=== PATIENT | female | born 1995 | race Caucasian/White ===

== ENCOUNTER 2017-10-23 12:44 | Emergency (ER) | payer OTHER, MEDICAID ==
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
[2017-10-23] MEDS ORDERED: HYDROCODONE/ACETAMINOPHEN 5-325 MG TABLET PO ONE (14:41)
[2017-10-23 15:32] VITALS: BP 95/62
== END 2017-10-23 15:31 | disposition home or self-care (01) ==
LOC: ER 12:44
DX: S39.012A Strain of muscle, fascia and tendon of lower back, initial encounter (principal); M25.551 Pain in right hip; M25.552 Pain in left hip; V43.52XA Car driver injured in collision with other type car in traffic accident, initial encounter; Q76.49 Other congenital malformations of spine, not associated with scoliosis; J45.909 Unspecified asthma, uncomplicated; Z98.890 Other specified postprocedural states
CPT/HCPCS: 72110; 99283

== ENCOUNTER 2017-12-06 21:45 | Emergency (ER) | payer SELFPAY ==
[2017-12-06] MEDS ORDERED: NORMAL SALINE 1000 ML 1,000 ML IV ONE (22:53)
[2017-12-06] MEDS ORDERED: ONDANSETRON HCL INJ/PF 4 MG/2 ML SDV IV ONE (22:54)
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
[2017-12-06 23:34] LABS: ABSOLUTE LYMPHOCYTES (AUTO) 2.1 10^3/uL (0.5-4.7); ABSOLUTE MONOCYTES (AUTO) 0.5 10^3/uL (0.1-1.4); ABSOLUTE NEUT (AUTO) 7.1 10^3/uL (1.7-8.2); BASOPHILS % (AUTO) 0.3 % (0-2); EOSINOPHILS % (AUTO) 0.1 % (0-6); HEMATOCRIT 38.8 % (36.0-47.0); HEMOGLOBIN 13.3 g/dL (12.0-15.5); LYMPHOCYTES % (AUTO) 21.5 % (13-45); MEAN CORPUSCULAR HEMOGLOBIN 31.8 pg (27.0-33.4); MEAN CORPUSCULAR HGB CONC 34.4 g/dL (32.0-36.0); MEAN CORPUSCULAR VOLUME 93 fl (80-97); PLATELET COUNT 271 10^3/uL (150-450); RED BLOOD COUNT 4.19 10^6/uL (3.72-5.28); RED CELL DISTRIBUTION WIDTH 13.3 % (11.5-14.0); SEGMENTED NEUTROPHILS % (AUTO) 73.1 % (42-78); TOTAL CELLS COUNTED % (AUTO) 100 %; WHITE BLOOD COUNT 9.8 10^3/uL (4.0-10.5)
[2017-12-06 23:55] LABS: APPEARANCE,URINE SLIGHTLY-CLOUDY; BILIRUBIN,URINE NEGATIVE (NEGATIVE); COLOR,URINE YELLOW; GLUCOSE, URINE NEGATIVE (NEGATIVE); KETONES,URINE 20 mg/dL (NEGATIVE); LEUKOCYTE ESTERASE,URINE NEGATIVE (NEGATIVE); NITRITE,URINE NEGATIVE (NEGATIVE); PROTEIN,URINE NEGATIVE (NEGATIVE); URINE SPECIFIC GRAVITY 1.014; UROBILINOGEN,URINE NEGATIVE mg/dL (<2.0)
[2017-12-07 00:52] LABS: ALANINE AMINOTRANSFERASE 22 U/L (9-52); ALBUMIN 3.5 g/dL (3.5-5.0); ALKALINE PHOSPHATASE 43 U/L (38-126); ANION GAP 14 (5-19); ASPARTATE AMINO TRANSFERASE 13 U/L (14-36); BILIRUBIN,DIRECT 0.2 mg/dL (0.0-0.4); BILIRUBIN,TOTAL 0.4 mg/dL (0.2-1.3); BLOOD UREA NITROGEN 8 mg/dL (7-20); CALCIUM 8.7 mg/dL (8.4-10.2); CARBON DIOXIDE 19 mmol/L (22-30); CHLORIDE 110 mmol/L (98-107); GLUCOSE 72 mg/dL (75-110); LIPASE 60.4 U/L (23-300); POTASSIUM 3.4 mmol/L (3.6-5.0); SODIUM 142.8 mmol/L (137-145); TOTAL PROTEIN 5.9 g/dL (6.3-8.2)
[2017-12-07] MEDS ORDERED: ONDANSETRON ODT 4 MG TAB (6 TAB/ER DISP) PO PRN (01:20)
[2017-12-07 01:55] VITALS: BP 110/72
== END 2017-12-07 01:38 | disposition home or self-care (01) ==
LOC: ER 21:45
DX: R11.2 Nausea with vomiting, unspecified (principal); R19.7 Diarrhea, unspecified; R10.10 Upper abdominal pain, unspecified
CPT/HCPCS: 99284; 96361; 96374; 36415; 83690; 85025; 81025; 80053; 81001; J2405; J7030

== ENCOUNTER 2017-12-08 08:25 | Emergency (ER) | payer SELFPAY ==
[2017-12-08] MEDS ORDERED: NORMAL SALINE 1000 ML 1,000 ML IV ONE (09:23)
[2017-12-08] MEDS ORDERED: PROCHLORPERAZINE EDISYLATE INJ 10 MG/2 ML VIAL IM ONE (09:39)
--- NOTE | 2017-12-08 09:49 | ER Document Report ---
ED General - General Mode of Arrival: Medic Information source: Patient TRAVEL OUTSIDE OF THE [place] IN LAST 30 DAYS: No <SERGIO FALL - Last Filed: 12/08/17 09:55> <LIU LOPEZ - Last Filed: 12/08/17 12:54> - General Chief Complaint: Vomiting Stated Complaint: VOMITING/CRAMPING Time Seen by Provider: 12/08/17 09:41 Notes: 22 y.o female presents to the ED with abd pain and vomiting. Pt reports that she has been vomiting since Thursday or Thursday or last week and was seen in the ED two days ago for the onset of epigastic pain with her vomiting. Pt while in the Ed two days ago had a positive test. Pt denies any vaginal bleeding. Pt reports that her last menstrual period was October 11. 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 She denies ever being in the before. (SERGIO FALL) - Related Data Allergies/Adverse Reactions: No Known Allergies Allergy (Verified 10/23/17 12:45) Past Medical History - General Information source: Patient - Social History Smoking Status: Never Smoker Cigarette use (# per day): No Chew tobacco use (# tins/day): No Smoking Education Provided: No Frequency of alcohol use: None Drug Abuse: None Family History: Reviewed & Not Pertinent Patient has suicidal ideation: No Patient has homicidal ideation: No Pulmonary Medical History: Reports: Hx Asthma, Hx Bronchitis Renal/ Medical History: Denies: Hx Peritoneal Dialysis Past Surgical History: Reports: Hx Orthopedic Surgery - back as child due to tethered spine. - Immunizations Immunizations up to date: Yes Hx Diphtheria, Pertussis, Tetanus Vaccination: Yes <SERGIO FALL - Last Filed: 12/08/17 09:55> Review of Systems - Review of Systems Constitutional: No symptoms reported EENT: No symptoms reported Cardiovascular: No symptoms reported Respiratory: No symptoms reported Gastrointestinal: See HPI, Abdominal pain - epigastic, Nausea, Vomiting Genitourinary: No symptoms reported Female Genitourinary: See HPI, . denies: Vaginal bleeding Musculoskeletal: No symptoms reported Skin: No symptoms reported Hematologic/Lymphatic: No symptoms reported Neurological/Psychological: No symptoms reported -: Yes All other systems reviewed and negative <SERGIO FALL - Last Filed: 12/08/17 09:55> Physical Exam <JUAN DAVIDSERGIO - Last Filed: 12/08/17 09:55> <LIU LOPEZ - Last Filed: 12/08/17 12:54> - Vital signs Vitals: Temp Pulse Resp BP Pulse Ox 98.1 F 83 20 124/53 L 100 12/08/17 08:29 12/08/17 08:29 12/08/17 08:29 12/08/17 08:29 12/08/17 08:29 - Notes Notes: Physical Exam: General: Alert. HEENT: Normocephalic. Atraumatic. PERRL. Extraocular movements intact. Oropharynx clear. Neck: Supple. Non-tender. Respiratory: No respiratory distress. Clear and equal breath sounds bilaterally. Cardiovascular: Regular rate and rhythm. Abdominal: Soft. Tender in epigastrium, not tender in RUQ or lower abd. No distension. Normal Bowel Sounds. Back: Non-tender. No deformity or step off. Extremities: Moves all four extremities. Upper extremities: Normal inspection. Normal ROM. Lower extremities: Normal inspection. No edema. Normal ROM. Neurological: Normal cognition. AAOx3. Normal speech. (SERGIO FALL) Course <ESRGIO FALL - Last Filed: 12/08/17 09:55> - Laboratory Result Diagrams: 12/08/17 09:50 12/08/17 09:50 <LIU LOPEZ - Last Filed: 12/08/17 12:54> - Re-evaluation Re-evalutation: 12/08/17 11:35 Patient reports the GI cocktail helped the epigastric burning pain and cramping. It is starting to wear off now. (LIU LOPEZ) - Vital Signs Vital signs: Temp Pulse Resp BP Pulse Ox 99.3 F 83 16 107/47 L 100 12/08/17 11:45 12/08/17 11:45 12/08/17 11:45 12/08/17 11:45 12/08/17 11:45 - Laboratory Laboratory results interpreted by me: 12/08/17 12/08/17 12/08/17 09:38 09:50 09:50 Seg Neutrophils % 81.2 H Chloride 108 H Carbon Dioxide 14 L Anion Gap 20 H Calcium 10.5 H Total Bilirubin 2.1 H Direct Bilirubin 0.5 H Beta HCG, Quant 68219.00 H Urine Protein 30 H Urine Ketones 80 H Ur Leukocyte Esterase TRACE H Discharge <SERGIO FALL - Last Filed: 12/08/17 09:55> <LIU LOPEZ - Last Filed: 12/08/17 12:54> - Discharge Clinical Impression: Hyperemesis gravidarum GERD (gastroesophageal reflux disease) Qualifiers: Esophagitis presence: esophagitis presence not specified Qualified Code(s): K21.9 - Gastro-esophageal reflux disease without esophagitis Condition: Stable Disposition: HOME, SELF-CARE Additional Instructions: Hyperemesis Gravidarum: Hyperemesis gravidarum is the medical term for severe vomiting during . We don't know exactly why it occurs, but it's a common problem. Dehydration can occur. This reduces blood flow to the placenta, decreasing the baby's nourishment. The baby will also become dehydrated. There can be harmful changes in blood sodium, potassium, or acid balance. Our goal is to correct, and prevent, dehydration. For severe cases, we give IV fluids. Antinausea medication will be prescribed. (Don't be concerned about " defects" -- the risk to you and your baby from the hyperemesis is the biggest problem. The antinausea medication is very safe at this stage of .) Call the doctor if you have vaginal bleeding, abdominal pain, severe lightheadedness or weakness, or other alarming symptoms. : You are . care is best started as early in as possible. If you're unsure about continuing this , you should discuss this with your physician or with conductor sleeping car at [facility]. You should take only medications approved by your physician. Acetaminophen can safely be taken for minor pains. As a rule, medication for chronic conditions such as asthma or seizures can safely be continued. You should discuss with the physician every medicine you take. Any regular exercise program can be continued. Talk to your physician, however, before engaging in competitive or demanding sports. Alcohol, smoking, and "street drugs" are dangerous to your baby. Cocaine is especially dangerous. Don't use any illicit drugs! Reflux Disease (GERD): Gastro-Esophageal Reflux Disease (GERD) is caused by stomach acid refluxing back up into the esophagus. The valve at the end of the esophagus may be weak. This is common in persons with a hiatal hernia. GERD symptoms can include indigestion, chest pain, heartburn, or food "sticking." Certain foods, alcohol, and aspirin can make GERD worse. Treatment depends on the severity. Usually, antacids or acid-suppressing medicines are used. When the esophagus is acutely inflamed, the physician will often prescribe membrane-protective drugs such as Carafate. Some patients benefit from medication such as Reglan that tightens the valve at the top of the stomach. Avoid those foods that bring on your symptoms. For many people, these foods are coffee, chocolate, onions, garlic, and carbonated drinks. Don't use alcohol, aspirin, caffeine, or tobacco. Don't eat late at night -- within 4 hours of bedtime. Don't over-eat. If necessary, elevate the head of your bed about 4 inches so that stomach acid will not roll up into your esophagus. Call the doctor if you develop severe chest pain, inability to swallow fluids, fever, or worsening symptoms. Take medication as prescribed for nausea as needed. Take antacids for the epigastric abdominal pain caused by the vomiting. Follow-up with the health department or with [facility] to start her care. RETURN TO THE EMERGENCY ROOM IF ANY NEW OR WORSENING SYMPTOMS. Prescriptions: Metoclopramide HCl [Reglan 10 mg Tablet] 1 tab PO ASDIR PRN #25 tablet PRN Reason: Referrals: JOANNE ADDISON MD [Primary Care Provider] - Follow up as needed [facility] [Provider Group] - Follow up as needed [facility] [Outside] - Follow up as needed Scribe Attestation: 12/08/17 12:54 I personally performed the services described in the documentation, reviewed and edited the documentation which was dictated to the scribe in my presence, and it accurately records my words and actions. (LIU LOPEZ) Scribe Documentation - Scribe Written by Yeny:: Yeny Mcleod [id number] 12/08/17 acting as scribe for :: Sarah <SERGIO FALL - Last Filed: 12/08/17 09:55>
[2017-12-08] MEDS ORDERED: MAG HYDROX/AL HYDROX/SIMETH SUSP 30 ML UDCUP PO ONE ×2 (09:59→12:42)
[2017-12-08] MEDS ORDERED: LIDOCAINE 2% VISCOUS SOLN 20 ML UDCUP PO ONE ×2 (09:59→12:42)
[2017-12-08] MEDS ORDERED: METOCLOPRAMIDE HCL INJ/PF 10 MG/2 ML SDV IV ONE (10:02)
[2017-12-08 10:14] LABS: ABSOLUTE LYMPHOCYTES (AUTO) 1.1 10^3/uL (0.5-4.7); ABSOLUTE MONOCYTES (AUTO) 0.3 10^3/uL (0.1-1.4); BASOPHILS % (AUTO) 0.2 % (0-2); HEMOGLOBIN 14.4 g/dL (12.0-15.5); LYMPHOCYTES % (AUTO) 14.7 % (13-45); MEAN CORPUSCULAR HEMOGLOBIN 31.9 pg (27.0-33.4); MEAN CORPUSCULAR HGB CONC 35.1 g/dL (32.0-36.0); MEAN CORPUSCULAR VOLUME 91 fl (80-97); MONOCYTES % (AUTO) 3.9 % (3-13); PLATELET COUNT 291 10^3/uL (150-450); RED BLOOD COUNT 4.52 10^6/uL (3.72-5.28); RED CELL DISTRIBUTION WIDTH 12.9 % (11.5-14.0); SEGMENTED NEUTROPHILS % (AUTO) 81.2 % (42-78); TOTAL CELLS COUNTED % (AUTO) 100 %; WHITE BLOOD COUNT 7.4 10^3/uL (4.0-10.5)
[2017-12-08 10:20] LABS: APPEARANCE,URINE SLIGHTLY-CLOUDY; BILIRUBIN,URINE NEGATIVE (NEGATIVE); COLOR,URINE YELLOW; GLUCOSE, URINE NEGATIVE (NEGATIVE); KETONES,URINE 80 mg/dL (NEGATIVE); LEUKOCYTE ESTERASE,URINE TRACE (NEGATIVE); NITRITE,URINE NEGATIVE (NEGATIVE); PROTEIN,URINE 30 mg/dL (NEGATIVE); URINE SPECIFIC GRAVITY 1.026; UROBILINOGEN,URINE NEGATIVE mg/dL (<2.0)
[2017-12-08 10:31] LABS: ALANINE AMINOTRANSFERASE 21 U/L (9-52); ALKALINE PHOSPHATASE 65 U/L (38-126); ASPARTATE AMINO TRANSFERASE 18 U/L (14-36); BILIRUBIN,DIRECT 0.5 mg/dL (0.0-0.4); BILIRUBIN,TOTAL 2.1 mg/dL (0.2-1.3); BLOOD UREA NITROGEN 11 mg/dL (7-20); CALCIUM 10.5 mg/dL (8.4-10.2); GLUCOSE 84 mg/dL (75-110); LIPASE 74.5 U/L (23-300); POTASSIUM 4.1 mmol/L (3.6-5.0); TOTAL PROTEIN 7.9 g/dL (6.3-8.2)
[2017-12-08 10:37] LABS: CARBON DIOXIDE 14 mmol/L (22-30); CHLORIDE 108 mmol/L (98-107); SODIUM 142.2 mmol/L (137-145)
[2017-12-08 10:38] LABS: ANION GAP 20 (5-19)
[2017-12-08] MEDS ORDERED: DEXTROSE 5%-LACTATED RINGERS 1,000 ML IV ONE ×2 (11:30→12:42)
[2017-12-08] MEDS ORDERED: FAMOTIDINE INJ/PF 20 MG/2 ML SDV IV ONE (12:57)
[2017-12-08] MEDS ORDERED: DIPHENHYDRAMINE HCL 50 MG/ML VIAL IV ONE (12:57)
[2017-12-08 14:38] VITALS: BP 99/64
== END 2017-12-08 14:38 | disposition home or self-care (01) ==
LOC: ER 08:25
DX: O21.0 Mild hyperemesis gravidarum (principal); O99.611 Diseases of the digestive system complicating pregnancy, first trimester; K21.9 Gastro-esophageal reflux disease without esophagitis; O26.891 Other specified pregnancy related conditions, first trimester; R10.13 Epigastric pain; O99.511 Diseases of the respiratory system complicating pregnancy, first trimester; J45.909 Unspecified asthma, uncomplicated; Z3A.08 8 weeks gestation of pregnancy
CPT/HCPCS: 99284; 96361; 96374; 96375; 86900; 86901; 36415; 84702; 83690; 85025; 80053; 81001; J1200; J3490; J2765; J7030; S0028

== ENCOUNTER 2019-12-28 08:25 | Emergency (ER) | payer SELFPAY ==
[2019-12-28] MEDS ORDERED: NORMAL SALINE 1000 ML 1,000 ML IV ONE ×2 (08:49→09:20)
[2019-12-28 08:58] LABS: ABSOLUTE LYMPHOCYTES (AUTO) 1.1 10^3/uL (0.5-4.7); ABSOLUTE MONOCYTES (AUTO) 0.3 10^3/uL (0.1-1.4); BASOPHILS % (AUTO) 0.4 % (0-2); EOSINOPHILS % (AUTO) 0.1 % (0-6); HEMATOCRIT 39.1 % (36.0-47.0); HEMOGLOBIN 13.4 g/dL (12.0-15.5); LYMPHOCYTES % (AUTO) 19.7 % (13-45); MEAN CORPUSCULAR HEMOGLOBIN 30.4 pg (27.0-33.4); MEAN CORPUSCULAR HGB CONC 34.4 g/dL (32.0-36.0); MEAN CORPUSCULAR VOLUME 89 fl (80-97); MONOCYTES % (AUTO) 5.4 % (3-13); PLATELET COUNT 286 10^3/uL (150-450); RED BLOOD COUNT 4.41 10^6/uL (3.72-5.28); RED CELL DISTRIBUTION WIDTH 14.6 % (11.5-14.0); SEGMENTED NEUTROPHILS % (AUTO) 74.4 % (42-78); TOTAL CELLS COUNTED % (AUTO) 100 %; WHITE BLOOD COUNT 5.4 10^3/uL (4.0-10.5)
[2019-12-28 09:16] LABS: ALBUMIN 5.2 g/dL (3.5-5.0); ALKALINE PHOSPHATASE 70 U/L (38-126); ANION GAP 19 (5-19); ASPARTATE AMINO TRANSFERASE 25 U/L (14-36); BILIRUBIN,DIRECT 0.1 mg/dL (0.0-0.4); BILIRUBIN,TOTAL 1.9 mg/dL (0.2-1.3); BLOOD UREA NITROGEN 22 mg/dL (7-20); CALCIUM 10.3 mg/dL (8.4-10.2); CARBON DIOXIDE 14 mmol/L (22-30); CHLORIDE 104 mmol/L (98-107); GLUCOSE 88 mg/dL (75-110); POTASSIUM 4.1 mmol/L (3.6-5.0); TOTAL PROTEIN 8.4 g/dL (6.3-8.2)
[2019-12-28] MEDS ORDERED: ONDANSETRON HCL INJ/PF 4 MG/2 ML SDV IV ONE (09:19)
--- NOTE | 2019-12-28 09:24 | ER Document Report ---
ED GI/ - General Chief Complaint: Nausea Stated Complaint: VOMITING Time Seen by Provider: 12/28/19 08:59 Notes: Patient is a 24-year-old female with a history of migraines who presents emergency department with a chief complaint of vomiting. Patient reports 2 days ago developing a migraine headache. Patient reports this did last 2 days. Patient reports her headache has now improved but she continues to vomit. Patient reports she has been to the emergency department before for uncontrolled vomiting and was told that it was her anxiety. Patient denies fever, chest pain, shortness of breath, urinary symptoms or abdominal pain. Patient denies back pain. Patient denies diarrhea. Patient reports there is no blood in her vomit. Patient estimates vomiting about 5-6 times per day and is unable to tolerate liquids or food. Patient reports she did attempt to eat something last night as she started to feel better but then began to vomit. TRAVEL OUTSIDE OF THE [place] IN LAST 30 DAYS: No - Related Data Allergies/Adverse Reactions: No Known Allergies Allergy (Verified 10/23/17 12:45) Past Medical History - General Information source: Patient - Social History Smoking Status: Never Smoker Drug Abuse: None Lives with: Family Family History: Reviewed & Not Pertinent Patient has homicidal ideation: No - Past Medical History Cardiac Medical History: Reports: None Denies: Hx Coronary Artery Disease, Hx Heart Attack, Hx Hypertension Pulmonary Medical History: Reports: Hx Asthma, Hx Bronchitis Denies: Hx COPD, Hx Pneumonia EENT Medical History: Reports: None Neurological Medical History: Reports: Hx Migraine. Denies: Hx Cerebrovascular Accident, Hx Seizures Endocrine Medical History: Reports: None Renal/ Medical History: Reports: None. Denies: Hx Peritoneal Dialysis Malignancy Medical History: Reports: None GI Medical History: Reports: None Musculoskeletal Medical History: Reports None, Denies Hx Arthritis Skin Medical History: Reports None Psychiatric Medical History: Reports: None Traumatic Medical History: Reports: None Infectious Medical History: Reports: None Past Surgical History: Reports: Hx Orthopedic Surgery - 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 Denies: Hx Hysterectomy - Immunizations Immunizations up to date: Yes Hx Diphtheria, Pertussis, Tetanus Vaccination: Yes Review of Systems - Review of Systems Constitutional: No symptoms reported EENT: No symptoms reported Cardiovascular: No symptoms reported Respiratory: No symptoms reported Gastrointestinal: See HPI Genitourinary: No symptoms reported Female Genitourinary: No symptoms reported Musculoskeletal: No symptoms reported Skin: No symptoms reported Hematologic/Lymphatic: No symptoms reported Neurological/Psychological: See HPI Physical Exam - Vital signs Vitals: Temp 98.2 F 12/28/19 08:26 Interpretation: Normal - Notes Notes: GENERAL: Actively vomiting in room. HEAD: Atraumatic, normocephalic. EYES: Pupils equal round and reactive to light, extraocular movements intact, sclera anicteric, conjunctiva are normal. ENT: TMs normal, nares patent, oropharynx clear without exudates. Moist mucous membranes. No nuchal rigidity. NECK: Normal range of motion, supple without lymphadenopathy or JVD. LUNGS: Breath sounds clear to auscultation bilaterally and equal. No wheezes rales or rhonchi. HEART: Regular rate and rhythm without murmurs, rubs or gallops. ABDOMEN: Soft, nontender, normoactive bowel sounds. No guarding, no rebound. No masses appreciated. BACK: No cervical, thoracic, lumbar midline tenderness. No saddle anesthesia, normal distal neurovascular exam. No CVA tenderness. GENITOURINARY: Deferred. EXTREMITIES: Normal range of motion, no pitting or edema. No clubbing or cyanosis. NEUROLOGICAL: Cranial nerves II through XII grossly intact. Normal speech, normal gait. PSYCH: Normal mood, normal affect. SKIN: Warm, Dry, normal turgor, no rashes or lesions noted. Course - Re-evaluation Re-evalutation: 12/28/19 09:23 Upon arrival into room patient actively vomiting green bile. IV fluids and blood work had been initiated by nursing staff. Will order nausea medication. Patient denies headache or pain. Patient is not tachycardic or hypertensive. Patient is afebrile. 12/28/19 11:29 Patient resting company on stretcher not actively vomiting. Will initiate IV fluids at 500 mL's per hour. Patient's lactate was elevated. I will repeat this at the appropriate time. Patient no acute distress. 12/28/19 12:35 Urinalysis showed 80 ketones after 2 L of fluid. Third liter of IV fluids to be given wide open as a bolus. Patient has had no vomiting. 12/28/19 14:33 Patient tolerating fluids. Patient has had no vomiting. I did discuss the patient case with Dr. Smith, pt. lactic did improve but acidotic. He does recommend giving 1 L of D5LR. If patient continues to tolerate liquids can be discharged home. 12/28/19 17:51 Patient was tolerating p.o. fluids prior to discharge. Patient ambulated out of the emergency department no acute distress. Patient was not tachycardic, hypotensive. - Vital Signs Vital signs: Temp Pulse Resp BP Pulse Ox 98.0 F 72 17 129/82 H 98 12/28/19 16:07 12/28/19 16:07 12/28/19 16:07 12/28/19 16:07 12/28/19 16:07 - Laboratory Result Diagrams: 12/28/19 08:40 12/28/19 12:37 Laboratory results interpreted by me: 12/28/19 12/28/19 12/28/19 08:40 08:40 08:40 RDW 14.6 H Chloride Carbon Dioxide 14 L BUN 22 H Lactic Acid 3.7 H Calcium 10.3 H Total Bilirubin 1.9 H Total Protein 8.4 H Albumin 5.2 H Urine Protein Urine Ketones Urine Blood 12/28/19 12/28/19 11:30 12:37 RDW Chloride 112 H Carbon Dioxide 17 L BUN Lactic Acid Calcium 7.6 L Total Bilirubin Total Protein Albumin Urine Protein 30 H Urine Ketones 80 H Urine Blood SMALL H Discharge - Discharge Clinical Impression: Dehydration, Acidosis Vomiting Qualifiers: Vomiting type: unspecified Vomiting Intractability: non-intractable Nausea presence: with nausea Qualified Code(s): R11.2 - Nausea with vomiting, unspecified Condition: Stable Disposition: HOME, SELF-CARE Additional Instructions: Dehydration Dehydration can result from vomiting or diarrhea, fever, or decreased intake of fluids. If severe, hospitalization and intravenous fluids may be required. Most cases are treated at home with fluids by mouth. For the next 24 hours, drink lots of clear fluids. In mild cases, this can be soda pop or sports drinks. For more severe dehydration, the doctor may recommend special fluids such as Pedialyte or Lytren. Try to get three liters (3 quarts) of fluid per day. If vomiting occurs, continue to drink the fluids frequently (every 15 to 20 minutes), but in small amounts (one or two ounces). Depending on the type of dehydration, the doctor may prescribe antinausea medicine or potassium replacements. Call the doctor or return for re-examination if you become progressively weak, vomit repeatedly, or have other new symptoms. Vomiting Vomiting (or nausea without vomiting) can be caused by many other different problems. It can mean that something's wrong with the stomach, such as ulcers or inflammation or the intestinal tract, such as appendicitis. But it can also be a symptom of a problem that has nothing to do with the stomach or intestines. Vomiting is common with severe headaches, earaches, tonsillitis, and kidney infections, etc. We see it with pneumonia or heart attacks. Drugs can cause nausea and vomiting. Many abdominal problems cause vomiting; for example, gallstones, kidney stones, pancreatitis, and intestinal obstruction (blocked bowels). In most cases, curing the vomiting depends on fixing the problem that caused it. For temporary relief, we may use an anti-nausea medicine. For home use, we can prescribe suppositories, chewable pills, pills that dissolve in the mouth, or liquid anti-nausea drugs. If the vomiting seems to be caused by a problem in the stomach, acid-suppressing drugs may be prescribed as well. It's important to avoid dehydration. Sip small amounts of clear liquids (soft drinks, tea, broth, etc) . Try to take fluids frequently even if you are vomiting to prevent dehydration. Take increasing amounts of fluid and when liquids are being consumed successfully, advance to small amounts of bland food (toast, soups, mashed potatoes, etc.) until you are able to resume a regular diet. Avoid aspirin, tobacco, and alcohol. If the vomiting worsens, if the problem that's making you vomit worsens, or if there's evidence of bleeding in the stomach (such as black, tarry stool, or bloody or black vomit), you should return immediately. Also, return if abdominal pain worsens or becomes localized to one area or you develop high fever. Call your doctor if you aren't improved in 24 hours. Prescriptions: Promethazine HCl [Phenergan 25 mg Tablet] 1 tab PO Q6H PRN #15 tablet PRN Reason: Forms: Return to Work
[2019-12-28] MEDS ORDERED: DIPHENHYDRAMINE HCL 50 MG/ML VIAL IV ONE (10:01)
[2019-12-28] MEDS ORDERED: METOCLOPRAMIDE HCL INJ/PF 10 MG/2 ML SDV IV ONE (10:01)
[2019-12-28] MEDS ORDERED: NORMAL SALINE 1000 ML 1,000 ML IV PRN (11:27)
[2019-12-28 12:03] LABS: APPEARANCE,URINE CLEAR; BILIRUBIN,URINE NEGATIVE (NEGATIVE); COLOR,URINE YELLOW; GLUCOSE, URINE NEGATIVE (NEGATIVE); KETONES,URINE 80 mg/dL (NEGATIVE); LEUKOCYTE ESTERASE,URINE NEGATIVE (NEGATIVE); NITRITE,URINE NEGATIVE (NEGATIVE); PROTEIN,URINE 30 mg/dL (NEGATIVE); URINE SPECIFIC GRAVITY 1.025; UROBILINOGEN,URINE NEGATIVE mg/dL (<2.0)
[2019-12-28 13:13] LABS: ANION GAP 9 (5-19); BLOOD UREA NITROGEN 16 mg/dL (7-20); CALCIUM 7.6 mg/dL (8.4-10.2); CARBON DIOXIDE 17 mmol/L (22-30); CHLORIDE 112 mmol/L (98-107); GLUCOSE 78 mg/dL (75-110)
[2019-12-28] MEDS ORDERED: DEXTROSE 5%-LACTATED RINGERS 1,000 ML IV ONE (14:27)
[2019-12-28 16:09] VITALS: BP 129/82
== END 2019-12-28 16:14 | disposition home or self-care (01) ==
LOC: ER 08:25
DX: R11.2 Nausea with vomiting, unspecified (principal); R11.14 Bilious vomiting; E86.0 Dehydration; E87.2 Acidosis
CPT/HCPCS: 99284; 96361; 96374; 96375; 36415; 83605; 83690; 85025; 81025; 80053; 81001; J1200; J2765; J2405; J7121; J7030

== ENCOUNTER 2020-05-08 10:37 | Emergency (ER) | payer SELFPAY ==
[2020-05-08] MEDS ORDERED: DIPHENHYDRAMINE HCL 50 MG/ML VIAL IV ONE ×2 (10:50→13:59)
[2020-05-08] MEDS ORDERED: PROCHLORPERAZINE EDISYLATE INJ 10 MG/2 ML VIAL IV ONE (10:50)
[2020-05-08] MEDS ORDERED: NORMAL SALINE 1000 ML 1,000 ML IV ONE ×2 (10:50→11:30)
[2020-05-08] MEDS ORDERED: ONDANSETRON HCL INJ/PF 4 MG/2 ML SDV IV ONE (11:30)
[2020-05-08 12:16] LABS: ABSOLUTE LYMPHOCYTES (AUTO) 0.9 10^3/uL (0.5-4.7); ABSOLUTE MONOCYTES (AUTO) 0.3 10^3/uL (0.1-1.4); ABSOLUTE NEUT (AUTO) 7.7 10^3/uL (1.7-8.2); BASOPHILS % (AUTO) 0.2 % (0-2); HEMATOCRIT 40.6 % (36.0-47.0); HEMOGLOBIN 13.7 g/dL (12.0-15.5); LYMPHOCYTES % (AUTO) 9.8 % (13-45); MEAN CORPUSCULAR HEMOGLOBIN 30.2 pg (27.0-33.4); MEAN CORPUSCULAR HGB CONC 33.9 g/dL (32.0-36.0); MEAN CORPUSCULAR VOLUME 89 fl (80-97); MONOCYTES % (AUTO) 3.1 % (3-13); PLATELET COUNT 325 10^3/uL (150-450); RED BLOOD COUNT 4.55 10^6/uL (3.72-5.28); RED CELL DISTRIBUTION WIDTH 13.9 % (11.5-14.0); SEGMENTED NEUTROPHILS % (AUTO) 86.9 % (42-78); TOTAL CELLS COUNTED % (AUTO) 100 %; WHITE BLOOD COUNT 8.9 10^3/uL (4.0-10.5)
[2020-05-08 12:29] LABS: APPEARANCE,URINE CLOUDY; BILIRUBIN,URINE NEGATIVE (NEGATIVE); COLOR,URINE AMBER; GLUCOSE, URINE NEGATIVE (NEGATIVE); KETONES,URINE 80 mg/dL (NEGATIVE); LEUKOCYTE ESTERASE,URINE NEGATIVE (NEGATIVE); NITRITE,URINE NEGATIVE (NEGATIVE); PROTEIN,URINE 100 mg/dL (NEGATIVE); URINE SPECIFIC GRAVITY 1.028
[2020-05-08 12:33] LABS: ALBUMIN 5.1 g/dL (3.5-5.0); ALKALINE PHOSPHATASE 62 U/L (38-126); ANION GAP 18 (5-19); ASPARTATE AMINO TRANSFERASE 19 U/L (14-36); BILIRUBIN,DIRECT 0.2 mg/dL (0.0-0.4); BILIRUBIN,TOTAL 1.2 mg/dL (0.2-1.3); BLOOD UREA NITROGEN 15 mg/dL (7-20); CALCIUM 10.5 mg/dL (8.4-10.2); CARBON DIOXIDE 17 mmol/L (22-30); CHLORIDE 106 mmol/L (98-107); GLUCOSE 140 mg/dL (75-110); POTASSIUM 3.8 mmol/L (3.6-5.0); TOTAL PROTEIN 7.9 g/dL (6.3-8.2)
[2020-05-08 12:43] LABS: URINE AMPHETAMINES SCREEN NEGATIVE; URINE BARBITURATES SCREEN NEGATIVE; URINE BENZODIAZEPINES SCREEN NEGATIVE; URINE COCAINE SCREEN NEGATIVE; URINE METHADONE SCREEN NEGATIVE; URINE PHENCYCLIDINE SCREEN NEGATIVE
[2020-05-08 12:45] LABS: URINE MARIJUANA (THC) SCREEN UNCONFIRMED POSITIVE
--- NOTE | 2020-05-08 13:27 | ER Document Report ---
ED GI/ - General Chief Complaint: Nausea/Vomiting Stated Complaint: NAUSEA/VOMITING Time Seen by Provider: 05/08/20 10:44 Mode of Arrival: Ambulatory Information source: Patient Notes: LAST ER VISIT with Emergency Provider: ROSE FERREIRAAccount Number: [id number] Date: 12/28/19 09:20 Initialization Date: 12/28/19 09:20 ED GI/ - General Chief Complaint: Nausea Stated Complaint: VOMITING Time Seen by Provider: 12/28/19 08:59 Notes: Patient is a 24-year-old female with a history of migraines who presents emergency department with a chief complaint of vomiting. Patient reports 2 days ago developing a migraine headache. Patient reports this did last 2 days. Liat ent reports her headache has now improved but she continues to vomit. Patient reports she has been to the emergency department before for uncontrolled vomiting and was told that it was her anxiety. Patient denies fever, chest pain, shortness of breath, urinary symptoms or abdominal pain. Patient denies back pain. Patient denies diarrhea. Patient reports there is no blood in her vomit. Patient estimates vomiting about 5-6 times per day and is unable to tolerate liquids or food. Patient reports she did attempt to eat something last night as she started to feel better but then began to vomit. note pt recieved NS 3 L and 1 L of D5LR 05/08/20 11:17 - ED Nursing Note by ALEJANDRA HUBER Acct Num: [id number] : 1995 Patient Age: 25 Pt. reports to the ED via POV with C/O N/V/ABD pain since thursday. Pt states consistent vomiting since thursday and today she has not been able to stop. Pt. reports that she things it is "food poisoning." Pt. states she has been here a few times for the same thing and zofran does not help with the nausea. pt. was dry heaving and having a hard time talking. Pt. states she has cramping in the lower ABD and DX use of weed or any other drugs. Pt. A+O x4. respirations even and unlabored. MY NOTES TODAY 25-year-old female arrives with 4-day history of vomiting and upper abdominal pain since eating at the [employer] last Thursday. Her best friend also ate there and was sick only for 24 hours. Patient reports she has a sensitive stomach since she got in 2018 at any time she eats any bad food she continues to have vomiting despite other people getting better. Patient reports she is on control pills now for the last 3 months and has just begun her new cycle of pills. She denied any use of any marijuana initially and then I confronted her with her positive UDS and she reports she did have some marijuana brownies around 2 weeks ago. She did have some alcohol in the early part of April during her birthday. She denies any marijuana or alcohol recently over the last week. She denies any . She denies any STD nuchal rigidity chest pain skin rash hair loss thyroid condition. Her urine today is positive for ketones. She has received IV fluids Compazine Benadryl as written by Gabriel at triage. TRAVEL OUTSIDE OF THE [place] IN LAST 30 DAYS: No - HPI Patient complains to provider of: Abdominal pain, Vomiting Onset: Other - x 4 days Timing/Duration: Sudden, Persistent Quality of pain: Achy Severity at maximum: Moderate Pain Level: 3 Context: Bad food Location: Epigastric, LUQ, RUQ - Related Data Allergies/Adverse Reactions: No Known Allergies Allergy (Verified 05/08/20 11:15) Past Medical History - General Information source: Patient - Social History Smoking Status: Never Smoker Cigarette use (# per day): No Chew tobacco use (# tins/day): No Smoking Education Provided: No Frequency of alcohol use: Occasional Lives with: Family Family History: Reviewed & Not Pertinent Patient has suicidal ideation: No Patient has homicidal ideation: No - Past Medical History Cardiac Medical History: Denies: Hx Coronary Artery Disease, Hx Heart Attack, Hx Hypertension Pulmonary Medical History: Reports: Hx Asthma, Hx Bronchitis Denies: Hx COPD, Hx Pneumonia Neurological Medical History: Reports: Hx Migraine. Denies: Hx Cerebrovascular Accident, Hx Seizures Renal/ Medical History: Denies: Hx Peritoneal Dialysis Musculoskeletal Medical History: Denies Hx Arthritis Past Surgical History: Reports: Hx Orthopedic Surgery - 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 Denies: Hx Hysterectomy - Immunizations Immunizations up to date: Yes Hx Diphtheria, Pertussis, Tetanus Vaccination: Yes Physical Exam - Vital signs Vitals: Temp Pulse Resp BP Pulse Ox 97.8 F 70 20 133/79 H 98 05/08/20 10:52 10/27/20 10:52 05/08/20 10:52 05/08/20 10:52 05/08/20 10:52 Interpretation: Normal - General General appearance: Appears well, Alert - HEENT Head: Normocephalic, Atraumatic Eyes: Normal Pupils: PERRL Nasal: Normal Mouth/Lips: Normal Mucous membranes: Dry Pharynx: Normal Neck: Normal - Respiratory Respiratory status: No respiratory distress Chest status: Nontender Breath sounds: Normal Chest palpation: Normal - Cardiovascular Rhythm: Regular Heart sounds: Normal auscultation Murmur: No - Abdominal Inspection: Normal Distension: No distension Bowel sounds: Normal Tenderness: Tender Organomegaly: No organomegaly - Rectal Hemorrhoids: Other - deferred - Genitourinary Bimanuel exam: Other - Deferred - Back Back: Normal, Nontender - Extremities General upper extremity: Normal inspection, Nontender, Normal color, Normal ROM, Normal temperature General lower extremity: Normal inspection, Nontender, Normal color, Normal ROM, Normal temperature, Normal weight bearing. No: Chacorta's sign - Neurological Neuro grossly intact: Yes Cognition: Normal Orientation: AAOx4 [place] Coma Scale Eye Opening: Spontaneous [place] Coma Scale Verbal: Oriented [place] Coma Scale Motor: Obeys Commands Erasmo Coma Scale Total: 15 Speech: Normal Motor strength normal: LUE, RUE, LLE, RLE Sensory: Normal - Psychological Associated symptoms: Normal affect, Normal mood - Skin Skin Temperature: Warm Skin Moisture: Dry Skin Color: Normal Course - Vital Signs Vital signs: Temp Pulse Resp BP Pulse Ox 97.8 F 70 20 133/79 H 98 05/08/20 10:52 05/08/20 10:52 05/08/20 10:52 05/08/20 10:52 05/08/20 10:52 - Laboratory Result Diagrams: 05/08/20 12:00 05/08/20 12:00 Laboratory results interpreted by me: 05/08/20 05/08/20 05/08/20 12:00 12:00 12:00 Lymph % (Auto) 9.8 L Seg Neutrophils % 86.9 H Carbon Dioxide 17 L Glucose 140 H Calcium 10.5 H Albumin 5.1 H Urine Protein 100 H Urine Ketones 80 H Urine Blood SMALL H Urine Urobilinogen 2.0 H Critical Care Note - Critical Care Note Comments: Patient much improved Discharge - Discharge Clinical Impression: Food poisoning, Abdominal pain with vomiting Condition: Stable Disposition: HOME, SELF-CARE Additional Instructions: We advised peanut butter brat diet bananas rice applesauce toast sips of water or sandrine jacqueline or tea and avoid carbonated fluids orange juice wine beer liquors and avoid smoking marijuana until your abdominal pain and vomiting has completely stopped. Off work until you feel improved. Prescriptions: Promethazine HCl [Phenergan 25 mg Tablet] 1 tab PO TID PRN #15 tablet PRN Reason: nausea Forms: Return to Work
[2020-05-08] MEDS ORDERED: DEXTROSE 5%-LACTATED RINGERS 1,000 ML IV ONE (13:40)
[2020-05-08] MEDS ORDERED: PROMETHAZINE HCL INJ 25 MG/1 ML VIAL IV ONE (13:59)
[2020-05-08] MEDS ORDERED: FAMOTIDINE INJ/PF 20 MG/2 ML SDV IV ONE (13:59)
[2020-05-08] MEDS ORDERED: SUCRALFATE 1 GM TABLET PO ONE (14:00)
[2020-05-08] MEDS ORDERED: LORAZEPAM INJ 2 MG/1 ML VIAL IV ONE (14:05)
[2020-05-08 16:12] VITALS: BP 106/54
== END 2020-05-08 16:15 | disposition home or self-care (01) ==
LOC: ER 10:37
DX: A05.9 Bacterial foodborne intoxication, unspecified (principal); R11.2 Nausea with vomiting, unspecified; R10.9 Unspecified abdominal pain
CPT/HCPCS: 99284; 96361; 96375; 96365; 36415; 85025; 81025; 86308; 80053; 81001; 80307; J2060; J2550; J2405; J7121; J7030; S0028